=== PATIENT | female | born 1995 | race Caucasian/White ===

== ENCOUNTER 2017-06-15 04:13 | Emergency (ER) | payer BC ==
[~2017-06-15] VITALS: Ht 154.9 cm; Wt 60.3 kg
[~2017-06-15 04:13] MED LIST: FLEXERIL10 MG PO; GENERESS FE 0.01 CTB PO; NORCO 325 MG-51 TAB PO
[2017-06-15] MEDS ORDERED: TRAMADOL 50 MG TAB PO (05:25)
[2017-06-15 05:39] VITALS: BP 118/42
== END 2017-06-15 05:38 | disposition home or self-care (01) ==
LOC: ED 04:13
DX: M54.6 Pain in thoracic spine (principal)

== ENCOUNTER → 2021-12-25 | Outpatient (CLI) | payer BC ==
[~2021-12-25] MED LIST changes: +TRAMADOL 50 MG TAB PO
== END ==
LOC: RAD 06:55
DX: D24.1 Benign neoplasm of right breast (principal)